=== PATIENT | female | born 2000 | race Caucasian/White ===

== ENCOUNTER 2021-07-08 19:30 | Emergency (ER) | payer OTHER ==
[2021-07-08] MEDS ORDERED: LIDOCAINE 1% INJ 10MG/ML (20 ML MDV) SQ ONE (19:46)
[2021-07-08] MEDS ORDERED: BACITRACIN OINT 1 EACH PACKET TOPICAL ONE (19:46)
--- NOTE | 2021-07-08 20:01 | ED ---
Wound/Laceration HPI - General Chief Complaint: Wound/Laceration Stated Complaint: [facility]-Laceration Time Seen by Provider: 07/08/21 19:38 Source: patient Mode of arrival: ambulatory Limitations: no limitations - History of Present Illness Initial Comments: Patient is a 21-year-old female presenting to emergency Department with complaints of a laceration to her left upper arm. Patient was at work today, she was standing on a chair to refill the ice when she slipped and the inside of her left upper arm hit a metal piece on the counter. Bleeding is controlled this time, she is on blood thinners. Her tetanus vaccine is up-to-date. There are no further complaints today. - Related Data Allergies Allergy/AdvReac Type Severity Reaction Status Date / Time No Known Allergies Allergy Verified 07/08/21 19:35 Review of Systems ROS Statement: Those systems with pertinent positive or pertinent negative responses have been documented in the HPI. ROS Other: All systems not noted in ROS Statement are negative. Past Medical History Past Medical History: Hypertension History of Any Multi-Drug Resistant Organisms: None Reported Past Surgical History: No Surgical Hx Reported Past Psychological History: No Psychological Hx Reported Smoking Status: Never smoker Past Alcohol Use History: None Reported Past Drug Use History: None Reported General Exam - General Exam Comments Initial Comments: GENERAL: Patient is well-developed and well-nourished. Patient is nontoxic and in no acute distress. HEAD: Atraumatic, normocephalic. EYES: Pupils equal round and reactive to light, extraocular movements intact, sclera anicteric, conjunctiva are normal. Eyelids were unremarkable. LUNGS: Unlabored respirations. Breath sounds clear to auscultation bilaterally and equal. No wheezes rales or rhonchi. HEART: Regular rate and rhythm without murmurs, rubs or gallops. ABDOMEN: Soft, nontender, normoactive bowel sounds. MUSCULOSKELETAL: Normal extremities with adequate strength and normal range of motion, no pitting or edema. No clubbing or cyanosis. NEUROLOGICAL: Patient is alert and oriented x 3. SKIN: Warm, Dry, normal turgor, no rashes. Patient has a 3 cm wide laceration to the left inner upper arm. No active bleeding. Limitations: no limitations Course Vital Signs 07/08/21 19:32 Temperature 99.0 F Pulse Rate 83 Respiratory 19 Rate Blood Pressure 149/106 O2 Sat by Pulse 98 Oximetry Procedures - Laceration Laceration #1 Consent Obtained: verbal consent Indication: laceration Site: upper extremity (left upper arm, medial aspect) Size (cm): 3 Description: linear Depth: simple, single layer Anesthetic Used: lidocaine 1% Anesthesia Technique: local infiltration Amount (mls): 4 Pre-repair: irrigated extensively Type of Sutures: nylon Size of Sutures: 4-0 Number of Sutures: 7 Technique: simple, interrupted Patient Tolerated Procedure: well Medical Decision Making - Medical Decision Making Patient is a 21-year-old female here with a 3 cm laceration to her left upper arm, medial aspect that happened at work today. Her tetanus vaccine is up-to-date, bleeding is controlled. Patient's wound is cleaned, closed with 7, 4 sutures. She tolerated procedure well. She'll stitch removed in 7-10 days. She will keep area clean and dry. She is agreeable with this plan of care and is stable for discharge. Disposition Clinical Impression: Laceration of left upper arm Disposition: HOME SELF-CARE Condition: Stable Instructions (If sedation given, give patient instructions): Care For Your Stitches (ED) Additional Instructions: Please return to the Emergency Department if symptoms worsen or any other concerns. Stitches need to be removed in 7-10 days. Keep area clean and dry. Is patient prescribed a controlled substance at d/c from ED?: No Referrals: Jeff Minaya MD [Primary Care Provider] - 1-2 days Time of Disposition: 20:36
[2021-07-08] MEDS ORDERED: IBUPROFEN 400 MG TAB PO STA (20:52)
[2021-07-08 21:05] VITALS: BP 130/77; PULSE 80; RESP 16; TEMP 98.2
== END 2021-07-08 21:03 | disposition home or self-care (01) ==
LOC: EC 19:30
DX: S41.112A Laceration without foreign body of left upper arm, initial encounter (principal); I10 Essential (primary) hypertension; W26.8XXA Contact with other sharp object(s), not elsewhere classified, initial encounter; Y99.0 Civilian activity done for income or pay
CPT/HCPCS: 12001; 99282; J2001; 12002